=== PATIENT | male | born 1975 | race Caucasian/White ===

== ENCOUNTER 2018-10-16 09:57 | Emergency (ER) | payer OTHER ==
[~2018-10-16] VITALS: Ht 177.8 cm; Wt 86.2 kg
[2018-10-16] MEDS ORDERED: FENOFIBRATE40 MG (10:09)
== END 2018-10-16 14:50 | disposition home or self-care (01) ==
LOC: ER 09:57
DX: R10.32 Left lower quadrant pain (principal)

== ENCOUNTER 2020-12-01 16:21 | Emergency (ER) | payer OTHER ==
[~2020-12-01] VITALS: Ht 177.8 cm; Wt 90.7 kg
[~2020-12-01 16:21] MED LIST: FENOFIBRATE40 MG
== END 2020-12-01 20:07 | disposition home or self-care (01) ==
LOC: ER 16:21
DX: R53.81 Other malaise (principal)

== ENCOUNTER 2023-01-05 18:11 | Emergency (ER) | payer OTHER ==
[~2023-01-05] VITALS: Ht 172.7 cm; Wt 72.6 kg
[2023-01-06] MEDS ORDERED: DICLOFENAC SODI75 MG PO (16:35)
== END 2023-01-05 20:17 | disposition home or self-care (01) ==
LOC: ER 18:11
DX: R60.0 Localized edema (principal)

== ENCOUNTER 2023-01-06 10:59 | Emergency (ER) | payer OTHER ==
[~2023-01-06] VITALS: Ht 177.8 cm; Wt 77.1 kg
[2023-01-06] MEDS ORDERED: DICLOFENAC SODI75 MG PO (16:35)
== END 2023-01-06 17:34 | disposition home or self-care (01) ==
LOC: ER 10:59
DX: M79.601 Pain in right arm (principal); M79.89 Other specified soft tissue disorders; I10 Essential (primary) hypertension